=== PATIENT | female | born 1960 | race Caucasian/White ===

== ENCOUNTER 2017-10-19 08:45 | Emergency (ER) | payer OTHER ==
[2017-10-19] MEDS ORDERED: predniSONE 20 MG TABLET (UD) PO ONE (08:53)
[2017-10-19] MEDS ORDERED: FAMOTIDINE 20 MG TABLET PO ONE (08:54)
--- NOTE | 2017-10-19 09:01 | PDOC ---
History of Present Illness - General Chief Complaint: Allergic Reaction Stated Complaint: POSSIBLE ALLERGIC REACTION Time Seen by Provider: 10/19/17 08:47 - History of Present Illness Initial Comments: 10/19/17 08:54 57 F with h/o GERD, HTN, presenting with cough and "lump in her throat" since this morning. She notes that her symptoms started yesterday with teary eyes and runny nose. She took a Xycam with no relief. Pt states that when she awoke today her symptoms worsened and she developed a cough productive of clear sputum. Pt also endorses a sensation of a "lump in her throat'. She denies difficulty breathing, denies difficulty swallowing, denies tongue or lip swelling, denies voice changes. Pt is concerned she is having an allergic reaction because she has allergies to shellfish and had a [place] soup yesterday at 2pm. However, she states these symptoms started several hours after eating that soup. Pt denies F/C. Denies N/V/D. Denies CP/SOB. Denies abdominal pain. Denies rash. Pt took benadryl 25mg PO prior to arrival. Does not report any improvement in symptoms at this time. Past History - Past Medical History Allergies/Adverse Reactions: Allergies Allergy/AdvReac Type Severity Reaction Status Date / Time Shellfish Allergy Severe Difficulty Verified 10/19/17 08:48 Breathing tetracycline [Tetracycline] Allergy Unknown Verified 10/19/17 08:48 PEANUTS Allergy Severe Difficulty Uncoded 10/19/17 08:48 Breathing TREE NUTS Allergy Severe Difficulty Uncoded 10/19/17 08:49 Breathing Home Medications: Ambulatory Orders Paroxetine HCl [Paxil -] 10 mg PO HS 12/05/11 Ramipril 10 mg PO DAILY 12/05/11 GI Disorders: Yes (diverticulitis) HTN: Yes - Surgical History Cholecystectomy: Yes - Suicide/Smoking/Psychosocial Hx Smoking Status: Yes Smoking History: Former smoker Number of Cigarettes Smoked Daily: 0 Hx Alcohol Use: Yes Drug/Substance Use Hx: No Substance Use Type: Alcohol Review of Systems - Review of Systems Comments:: 10/19/17 08:58 "GENERAL/CONSTITUTIONAL: No fever or chills. No weakness. HEAD, EYES, EARS, NOSE AND THROAT: No change in vision. No ear pain or discharge. No sore throat. CARDIOVASCULAR: No chest pain or shortness of breath. RESPIRATORY: + cough, no wheezing, or hemoptysis. GASTROINTESTINAL: No nausea, vomiting, diarrhea or constipation. GENITOURINARY: No dysuria, frequency, or change in urination. MUSCULOSKELETAL: No joint or muscle swelling or pain. No neck or back pain. SKIN: No rash NEUROLOGIC: No headache, vertigo, loss of consciousness, or change in strength/ sensation. ENDOCRINE: No increased thirst. No abnormal weight change. HEMATOLOGIC/LYMPHATIC: No anemia, easy bleeding, or history of blood clots. ALLERGIC/IMMUNOLOGIC: No hives or skin allergy. " *Physical Exam - Physical Exam Comments: 10/19/17 08:59 "GENERAL: Awake, alert, and fully oriented, in no acute distress. HEAD: No signs of trauma EYES: PERRLA, EOMI, sclera anicteric, conjunctiva clear ENT: + mild erythema to posterior OP, Auricles normal inspection, hearing grossly normal, nares patent. Moist mucosa NECK: Nontender, no stepoffs, Normal ROM, supple, no lymphadenopathy, JVD, or masses LUNGS: Breath sounds equal, clear to auscultation bilaterally. No wheezes, and no crackles HEART: Regular rate and rhythm, normal S1 and S2, no murmurs, rubs or gallops ABDOMEN: Soft, nontender, normoactive bowel sounds. No guarding, no rebound. No masses EXTREMITIES: Normal range of motion, no edema. No clubbing or cyanosis. No cords, erythema, or tenderness NEUROLOGICAL: Cranial nerves II through XII intact. 5/5 strength and sensation in all extremities, Normal speech, normal gait, normal cerebellar function SKIN: Warm, Dry, normal turgor, no rashes or lesions noted. " ED Treatment Course - RADIOLOGY Radiology Studies Ordered: Category Date Time Status CHEST PA & LAT [RAD] Stat Radiology 10/19/17 08:53 Ordered Medical Decision Making - Medical Decision Making 10/19/17 08:59 57 F with cough and congestion x 1 day. Likely viral URI vs allergic rhinitis with post-nasal drip. Pt with no clinical signs of allergic reaction at this time. No facial/tongue/uvula swelling. No stridor on exam. No evidence of impending airway compromise. However, given pt's shellfish allergy and recent consumption of food possibly containing this allergen, will tx as mild allergic reaction. - CXR to r/o PNA - Benadryl + Prednisone + pepcid for possible allergic reaction 10/19/17 09:08 Pt's vitals noted to be hypertensive and tachycardic. Pt states she did not take her morning dose of ramipril 10mg today. I offered to order her home dose for her. She states she brought it with her and will take her own. 10/19/17 10:09 CXR negative Pt reassessed - states she feels much better. Will recheck vitals. 10/19/17 10:14 Pt with BP now 150s systolic, HR 78. Vitals normalizing. Pt states she has not yet taken her home ramipril but will take it now. Pt is well appearing, with normal vitals. Clinically stable for DC at this time. I discussed the physical exam findings, ancillary test results and final diagnoses with the patient. I answered all of the patient's questions. The patient was satisfied with the care received and felt comfortable with the discharge plan and treatment plan. The patient agrees to follow up with the primary care physician within 24-72 hours. *DC/Admit/Observation/Transfer Diagnosis at time of Disposition: Cough - Discharge Dispostion Disposition: HOME - Referrals - Patient Instructions Printed Discharge Instructions: DI for Cough -- Adult Additional Instructions: Continue taking the prednisone for 4 more days. If you experience worsening cough, throat swelling, tongue swelling, lip swelling, difficulty breathing, or any other concerning symptoms, return to the ER immediately. Otherwise, follow up with your primary doctor within 1 week. - Post Discharge Activity Forms/Work/School Notes: Back to Work - Attestations Physician Attestion: 10/19/17 10:11 I, Dr. Edmond Negron MD, attest that this document has been prepared under my direction and personally reviewed by me in its entirety. I further attest, that it accurately reflects all work, treatment, procedures and medical decision -making performed by me.
[2017-10-19 09:02] VITALS: TEMP 99; BMI 28.3
[2017-10-19 10:14] VITALS: BP 155/107; PULSE 78
== END 2017-10-19 10:33 | disposition home or self-care (01) ==
LOC: FER 08:45
DX: R05 Cough (principal)
CPT/HCPCS: 71046-TC-FY; 99281-25